=== PATIENT | female | born 1950 | race Caucasian/White ===

== ENCOUNTER → 2018-07-12 | Outpatient (CLI) | payer OTHER ==
[~2018-07-12] VITALS: Ht 160 cm; Wt 59.0 kg
[~2018-07-12] MED LIST: ACYCLOVIR 400400 MG PO; ALDACTONE100 MG PO; BENTYL 10 MG CA10 M1 PO; CELEBREX 200 M200 M1 PO; CHLORZOXAZONE500 MG PO; CYMBALTA60 MG PO; ELESTRIN26 GM TOP; HYDROCODON-ACE1 EAC7 PO; IPRATROPIU0.2 MG/1 M INH; LASIX 40 MG TAB40 M2 PO; PRAVACHOL40 MG PO; PRILOSEC 20 MG20 MG PO; PROMETRIUM100 MG PO; PROPRANOLOL 1010 MG PO; VAGIFEM10 MCG VAG; XANAX 0.25 MG0.25 MG PO; ZANTAC 150MG T150 MG PO
--- NOTE | ~2018-07-12 | HPC ---
[facility] [address] [place] [address] PAIN MANAGEMENT CONSULTATION Name: LEONARDO MIDDLETON Room #: REG [facility].#: [id number] Admission: 07/12/18 Attend Phys: Elvin Wolf MD Discharge: Date of : 52 Report #: [id number] THIS REPORT FOR: //name// CC: Heraclio Wolf DATE OF SERVICE: 07/12/2018 CHIEF COMPLAINT: Chronic pain, neck, right knee, right shoulder and left foot. The patient is a 67-year-old female who has multiple pain generators. She has had chronic neck problem dating back nearly 10 years. She had an anterior cervical diskectomy and fusion at C5-C6 by Dr. Rancho Long and has done okay following surgery, but still complains of pain in the neck radiating into the right suprascapular region with localized muscle spasm and tenderness. In addition, she had a knee replacement in [address] Cisse and had ongoing pain in his prosthesis. She has had therapy on a couple of occasions. Dr. Cisse has also performed an arthroscopic surgery on her right shoulder and this continues to give her some discomfort. 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 She has a small developing bunion along with great toe on the left. All of these pains bother her on a daily basis scoring her pain as an 8/10. She has used ice packs, muscle relaxants, a massager and [id number] anti-inflammatory drugs. She has not been on stronger medication. The impact pain score is quite high. With this degree of discomfort, she has been unable to enjoy the company of friends which she scores as 10/10, interference with also enjoyment of life, sleep, mood and general activity, all scored 7 or greater. 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. She retired in January, but this has taken away one of her pain strategies, which is diversion and distraction. She has not found full activities to replace her time at work. MEDICATIONS: Prilosec, Zantac, Cymbalta, ipratropium, dicyclomine, propranolol, pravastatin, Celebrex, Aldactone, Xanax, chlorzoxazone, Prometrium, Estrin, Femtabs, acyclovir and furosemide. Dr. Simon has provided her with hydrocodone 5/325 two tablets daily. ALLERGIES: CODEINE CAUSES NAUSEA. PAST MEDICAL HISTORY: Remarkable for the surgeries mentioned as well as some irritable bowel syndrome. She has had trouble with her stomach and [facility] [address] [place] [address] PAIN MANAGEMENT CONSULTATION Name: LEONARDO MIDDLETON Room #: REG [facility]#: [id number] Admission: 07/12/18 Attend Phys: Elvin Wolf MD Discharge: Date of : 52 Report #: [id number] anti-inflammatory drugs caused some distress. She has osteoarthritis. SOCIAL HISTORY: She is , retired from her job. Denies tobacco. Drinks 1 alcoholic beverage per week. PHYSICAL EXAMINATION: She is a pleasant 67-year-old female. Blood pressure 122/75, heart rate 84, respirations 16. BMI 23. Examination of the neck reveals small scar on the left side from her ACDF. It is nontender. Range of motion of the neck is adequate. There is mild tenderness along the cervical spine and into the suprascapular region. She has good strength in the upper extremities. Deep tendon reflexes are normal. Sensation is intact. Chest is clear. Cardiac rhythm is regular. Examination of the spine reveals normal alignment. Examination of the right knee reveals tenderness of the scar. There is a small Garcia cyst. She has mild crepitus. Examination of the left foot reveals some hypersensitivity and a small bunion along the great toe. There is also complaint of sensitivity between the second and third toe. IMPRESSION: 1. Chronic intractable pain with multiple pain generators including cervicalgia with musculoskeletal pain related to facet arthropathy and myofascial tenderness. 2. Chronic pain, status post right knee replacement. This is more common in women and can be a lifelong chronic pain that should be managed with therapy and medication. 3. Left foot pain with Reece's neuroma. RECOMMENDATIONS: I would continue her on medication for management of this pain. She would be a reasonable person to take a daily dose of opioid medication, which provides relief for her. I have recommended that she receive this medication from her primary care physician since her dose would remain low. I would suggest hydrocodone 5/325 up to 3 times a day. This level of 15 morphine milligram equivalents for chronic intractable pain is considered reasonable in most settings. She should sign an opioid agreement and she was given instructions about safeguarding medications carefully, so that they are not diverted. Followup visit planned in 1 month if they would like us to prescribe medications for her under our program or Dr. Simon can do so. I do not think injections are indicated at this time. By: [id number] Elvin Wolf MD /nt
[2018-07-12 10:25] VITALS: BP 122/75
== END ==
LOC: PAIN 00:23
DX: M54.2 Cervicalgia (principal); G89.4 Chronic pain syndrome; M79.672 Pain in left foot; M25.511 Pain in right shoulder; M12.88 Other specific arthropathies, not elsewhere classified, other specified site; G57.61 Lesion of plantar nerve, right lower limb; Z96.651 Presence of right artificial knee joint